=== PATIENT | male | born 1950 | race Hispanic/Latino ===

== ENCOUNTER → 2024-07-26 | Outpatient (CLI) | payer OTHER, MEDICARE ==
[~2024-07-26] MED LIST: AMLO-257 PO; ATOR40TA69 PO; CARV12.511 PO; CYCL25CA7 PO; EPOE10I SQ; FERS325 PO; LATA2.5D14 OU; MYCO250C7 PO; PRED2.5T PO; SODI650T PO
[2024-07-26 12:38] LABS: ALBUMIN 3.4 g/dL (3.5-5.0); BILIRUBIN,TOTAL 0.4 mg/dL (0.2-1.0); CREATININE 4.1 mg/dL (0.5-1.3); POTASSIUM 4.7 mmol/L (3.5-5.1); TOTAL PROTEIN, SERUM 6.9 g/dL (6.0-8.3)
== END | disposition home or self-care (01) ==
LOC: LAB 10:43
PROVIDERS: ATTEND Student in an Organized Health Care Education/Training Program
DX: I10 Essential (primary) hypertension (principal)
CPT/HCPCS: 36415; 80053